=== PATIENT | male | born 1970 | race African-American/Black ===

== ENCOUNTER 2019-01-06 10:25 | Emergency (ER) | payer OTHER ==
[~2019-01-06] VITALS: Ht 182.9 cm; Wt 81.7 kg
[~2019-01-06 10:25] MED LIST: NOHOMEMEDICATIONS; PERCOCET 5-3251 EACH PO
[2019-01-06 11:13] LABS: ABSOLUTE NEUTROPHILS 4.3 thou/uL (1.4-8.2); BASOPHILS 0.3 % (0.0-2.0); EOSINOPHILS 0.3 % (0.0-3.0); HEMATOCRIT 43.7 % (42.0-52.0); HEMOGLOBIN 14.8 gm/dL (14.0-18.0); LYMPHOCYTES 18.8 % (24.0-44.0); MCH 32.4 pg (26.0-34.0); MCHC 33.7 g/dL (28.0-37.0); MCV 95.9 fL (80.0-100.0); MONOCYTES 8.7 % (1.0-8.0); PLATELET COUNT 244 thou/uL (150-400); POLYS 71.9 % (36.0-66.0); RBC 4.56 mil/uL (4.50-6.00); RDW 13.2 % (10.5-14.5)
[2019-01-06 11:18] LABS: ANION GAP 7 mmol/L (7-16); BUN 10 mg/dL (7-18); CALCIUM 8.9 mg/dL (8.5-10.1); CHLORIDE 109 mmol/L (98-107); CO2 28 mmol/L (21-32); GLUCOSE 98 mg/dL (74-106); SODIUM 144 mmol/L (136-145)
[2019-01-06 11:29] LABS: SGOT 11 U/L (15-37); SGPT 15 U/L (30-65); TOTAL BILIRUBIN 0.3 mg/dL (<0.1-1.0); TOTAL PROTEIN 7.3 g/dL (6.4-8.2); TROPONIN-I <0.06 ng/mL (<0.06)
[2019-01-06 12:38] LABS: URINE BILIRUBIN NEGATIVE (Negative); URINE BLOOD NEGATIVE (Negative); URINE CLARITY CLEAR; URINE COLOR YELLOW; URINE GLUCOSE-RANDOM* NEGATIVE (Negative); URINE KETONES NEGATIVE (Negative); URINE LEUKOCYTES-REFLEX NEGATIVE (Negative); URINE NITRITE-REFLEX NEGATIVE (Negative); URINE PROTEIN (DIPSTICK) NEGATIVE (Negative); URINE SPECIFIC GRAVITY <= 1.005 (1.005-1.035); URINE UROBILINOGEN 0.2 E.U./dl (0.2-1.0)
[2019-01-06 13:15] VITALS: BP 114/72
--- NOTE | 2019-01-07 12:34 | EKG ---
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: Hemanth JORDAN : 1970 Requested By: Huma Mohr Order Number: [id number] MD: Jorge Luis Pollack Measurements Intervals Ignacio Rate: 61 P: 58 IL: 146 QRS: 50 QRSD: 85 T: 26 QT: 390 QTc: 393 Interpretive Statements Sinus rhythm RSR' in V1 or V2, probably normal variant Compared to ECG 10/03/2015 00:09:32 No significant changes Electronically Signed On 01-07-2019 12:33:53 CDT by Jorge Luis Pollack [email or web address] ��������������������������������������������� <ELECTRONICALLY SIGNED> ���������������������������������������� By: Jorge Luis Pollack MD, [facility] ��������������������������������������������� 01/07/19 1233 1029 1029 Jorge Luis Pollack MD, FACC /EPI
== END 2019-01-06 13:15 | disposition home or self-care (01) ==
LOC: ER 10:25
PROVIDERS: Nurse Practitioner Family
DX: R42 Dizziness and giddiness (principal); R00.1 Bradycardia, unspecified; F17.210 Nicotine dependence, cigarettes, uncomplicated